=== PATIENT | female | born 1990 | race Caucasian/White ===

== ENCOUNTER 2017-03-25 10:34 | Emergency (ER) | payer SELFPAY ==
[~2017-03-25] VITALS: Ht 170.2 cm; Wt 48.5 kg
[~2017-03-25 10:34] MED LIST: ACET500T33; CEFU250T59 PO; PNV11TAB PO
--- NOTE | 2017-03-25 12:00 | PHYS DOC ---
Past History Past Medical History: No Pertinent History Past Surgical History: Other Smoking: Non-smoker Alcohol Use: None Drug Use: None Adult General Chief Complaint Chief Complaint: VAGINAL PROBLEM HPI HPI Patient is a 27-year-old female who presents with vaginal bleeding that started yesterday. The patient states that she had unprotected intercourse on Thursday, . On Thursday, 03/24, she had some vaginal bleeding described as a "gush". Since then, her bleeding has stopped but she has spotting when she wipes. She's had no pain. No fever or chills. No UTI symptoms. She did not have unprotected intercourse prior to Thursday. They usually use condoms. Her last menstrual period , she believes, was at the end of February. Patient does not have a [facility] doctor, she does not have yearly exams. She does not use any type of hormonal control, she does not have an IUD, pills, injections, patch, etc. Review of Systems Review of Systems Constitutional: Denies fever or chills [] : As in history of present illness Allergies Allergies Allergies Coded Allergies Type Severity Reaction Last Updated Verified No Known Drug Allergies 03/25/17 No Physical Exam Physical Exam Constitutional: Well developed, well nourished, no acute distress, non-toxic appearance. Alert, ambulatory, mentating normally, warm and dry. HENT: Normocephalic, atraumatic, bilateral external ears normal, nose normal. [ ] Eyes: conjunctiva normal, no discharge. [] Neck: Normal range of motion, no stridor. [] Pelvic exam: External genitalia normal. Vaginal vault with small amount of normal-appearing blood. Cervix normal in appearance. GC, chlamydia swab was taken. Bimanual exam: No cervical motion tenderness. Uterus not enlarged or tender. Adnexa without tenderness or masses. Skin: Warm, dry, no erythema, no rash. [] Extremities: No tenderness, no cyanosis, no clubbing, ROM intact, no edema. [] Neurologic: Alert and oriented X 3, normal motor function, no focal deficits noted. [] Current Patient Data Vital Signs Vital Signs Date Time Temp Pulse Resp B/P (MAP) Pulse Ox O2 Delivery O2 Flow Rate FiO2 03/25/17 10:44 97.6 116 16 99 Room Air Lab Results Laboratory Tests Test 03/25/17 11:45 POC Urine HCG, Qualitative hcg negative (Negative) EKG EKG [] Radiology/Procedures Radiology/Procedures [] Course & Med Decision Making Course & Med Decision Making Pertinent Labs and Imaging studies reviewed. (See chart for details) 27-year-old female presents with vaginal bleeding at a time that she does not believe is a menstrual cycle, she is concerned about why she is bleeding. test is negative. Pelvic exam is very unremarkable, no evidence of PID or other abnormal cause of bleeding. I reassured the patient. She did say that she had unprotected intercourse on 03/23 and also said that she does not wish to become . I offered her treatment with "plan B" here in the ED, she was not sure what she wanted to do, so I wrote her prescription so she can make up her mind, but advised her this sooner the better if she wants it to work. [] Dragon Disclaimer Dragon Disclaimer This chart was dictated in whole or in part using Voice Recognition software in a busy, high-work load, and often noisy Emergency Department environment. It may contain unintended and wholly unrecognized errors or omissions. Departure Departure: Impression: Primary Impression: Irregular menstrual bleeding Disposition: HOME, SELF-CARE Condition: STABLE Referrals: PCP,NO (PCP) Additional Instructions: As we discussed, your test was negative here in the emergency department today. However, you had unprotected sex 2 days ago, and that would not show up yet if you did become 2 days ago. I recommend that you check a test in about 2 weeks and about 1 month. The bleeding you're having might be an early. At an abnormal time for you. Or it might be just some bleeding between periods that you don't usually experience. There is no sign today of anything serious causing it. I recommend following up with [facility], the health department, or [facility] doctor for contraception and routine yearly exams including cancer screening. Scripts Levonorgestrel (PLAN B ONE-STEP) 1.5 Mg Tablet 1.5 MG PO 1X for to prevent , #1 TAB Take as soon as possible after unprotected intercourse, to prevent unwanted . This is most effective the quicker that it is taken after unprotected intercourse. Prov: MANUEL MARIE MD 03/25/17 MANUEL MARIE MD Mar 25, 2017 12:00
[2017-03-25] MEDS ORDERED: [UNRECOGNIZED DRUG - CODE] PO (12:06)
[2017-03-25 12:15] VITALS: BP 131/71
[2017-03-26 20:09] LABS: CHLAMYDIA PROBE Negative (Negative)
== END 2017-03-25 12:15 | disposition home or self-care (01) ==
LOC: ER 10:34
DX: N92.5 Other specified irregular menstruation (principal)
CPT/HCPCS: 36415; 81025; 87491; 87591; 99284

== ENCOUNTER 2020-05-30 08:43 | Emergency (ER) | payer SELFPAY ==
[~2020-05-30] VITALS: Ht 170.2 cm; Wt 44.0 kg
[~2020-05-30 08:43] MED LIST changes: +[UNRECOGNIZED DRUG - CODE] PO
[2020-05-30 09:10] VITALS: BP 117/70
[2020-05-30] MEDS ORDERED: TRAM50TA PO (19:44)
[2020-05-30] MEDS ORDERED: AMOX500T PO (19:44)
== END 2020-05-30 11:42 | disposition left against medical advice (07) ==
LOC: ER 08:43
DX: K08.89 Other specified disorders of teeth and supporting structures (principal); Z53.21 Procedure and treatment not carried out due to patient leaving prior to being seen by health care provider

== ENCOUNTER 2020-05-30 19:31 | Emergency (ER) | payer SELFPAY ==
[~2020-05-30] VITALS: Ht 170.2 cm; Wt 45.5 kg
[2020-05-30 19:35] VITALS: BP 117/61
[2020-05-30] MEDS ORDERED: AMOX500T PO (19:44)
[2020-05-30] MEDS ORDERED: TRAM50TA PO (19:44)
--- NOTE | 2020-05-30 19:44 | PHYS DOC ---
Past History Past Medical History: No Pertinent History (JUN THOMASON APRN) Past Surgical History: No Surgical History (JUN THOMASON APRN) Smoking: Non-smoker Alcohol Use: None Drug Use: None (JUN THOMASON APRN) Adult General Chief Complaint Chief Complaint: DENTAL PROBLEM HPI HPI Patient is a 30-year-old female patient current smoker presenting to the ED today complaining of 9 out of 10 right lower gum dental pain with gum swelling, patient states dental pain is chronic but has gotten worse in the last 24 hours. Denies any fever or trismus. She states she does not have a dentist because she does not have any medical insurance. (JUN THOMASON APRN) Review of Systems Review of Systems Constitutional: Denies fever or chills [] HENT: Reports right-sided dental pain denies nasal congestion or sore throat [] Musculoskeletal: Denies back pain or joint pain [] Integument: Denies rash or skin lesions [] Neurologic: Denies headache, focal weakness or sensory changes [] All other systems were reviewed and found to be within normal limits, except as documented in this note. (JUN THOMASON APRN) Allergies Allergies Allergies Coded Allergies Type Severity Reaction Last Updated Verified No Known Drug Allergies 03/25/17 No (JUN THOMASON APRN) Physical Exam Physical Exam Constitutional: Well developed, well nourished, no acute distress, non-toxic appearance. [] HENT: Normocephalic, atraumatic, bilateral external ears normal, oropharynx moist, no oral exudates, nose normal. [] Right facial area has mild swelling especially on the lower cheek. Very poor dentition noted, swelling along the molars and premolars gums. Erythema along this region, no fluctuance noted to the gums. Most of her teeth are severely decayed Skin: Warm, dry, no erythema, no rash. [] Back: No tenderness, no CVA tenderness. [] Extremities: No tenderness, no cyanosis, no clubbing, ROM intact, no edema. [] Neurologic: Alert and oriented X 3, normal motor function, normal sensory function, no focal deficits noted. [] Psychologic: Affect normal, judgement normal, mood normal. [] (JUN THOMASON APRN) EKG EKG [] (JUN THOMASON APRN) Radiology/Procedures Radiology/Procedures [] (JUN THOMASON APRN) Heart Score Risk Factors: Risk Factors: DM, Current or recent (<one month) smoker, HTN, HLP, family history of CAD, obesity. Risk Scores: Risk Factors: DM, Current or recent (<one month) smoker, HTN, HLP, family history of CAD, obesity. (JUN THOMASON APRN) Course & Med Decision Making Course & Med Decision Making Pertinent Labs and Imaging studies reviewed. (See chart for details) This is a 30-year-old female patient presenting to the ED ED today with dental abscess. She is a smoker, she is encouraged to consider smoking cessation. She was discharged on amoxicillin and tramadol. Follow-up with dentist in 2 weeks. (JUN THOMASON APRN) Dragon Disclaimer Dragon Disclaimer This electronic medical record was generated, in whole or in part, using a voice recognition dictation system. (JUN THOMASON APRN) Attending Co-Sign The patient was seen and interviewed as well as examined at the bedside. The chart was reviewed. The case was discussed. Agree with the plan of care. (MOSES ALCAZAR DO) Departure Departure: Impression: Primary Impression: Dental abscess Additional Impression: Smoking addiction Disposition: 01 DC HOME SELF CARE/HOMELESS Condition: STABLE Referrals: PCP,NO (PCP) Follow-up with the dentist in 2 weeks Patient Instructions: Dental Abscess, Smoking Cessation, Tips For Success Additional Instructions: You were evaluated in the emergency room for dental infection. Take the prescribed antibiotics until completed. Please consider smoking cessation. Establish care with a dentist and follow-up in 2 weeks Scripts Tramadol Hcl (TRAMADOL HCL) 50 Mg Tablet 50 MG PO PRN Q6HRS PRN for PAIN, #21 TAB Prov: JUN THOMASON APRN 05/30/20 Amoxicillin (AMOXICILLIN) 500 Mg Tablet 1 TAB PO BID, #20 TAB Prov: JUN THOMASON APRN 05/30/20 Problem Qualifiers JUN THOMASON APRN May 30, 2020 19:44 MOSES ALCAZAR DO May 31, 2020 00:07
== END 2020-05-30 19:49 | disposition home or self-care (01) ==
LOC: ER 19:31
DX: K04.7 Periapical abscess without sinus (principal); F17.200 Nicotine dependence, unspecified, uncomplicated
CPT/HCPCS: 99283

== ENCOUNTER 2020-11-26 22:19 | Emergency (ER) | payer SELFPAY ==
[~2020-11-26] VITALS: Ht 170.2 cm; Wt 45.5 kg
[~2020-11-26 22:19] MED LIST changes: +AMOX500T PO; +TRAM50TA PO
[2020-11-26] MEDS ORDERED: NEOMYCIN/POLYMYXIN/HC OTIC SUSPENSION 10ML BOTTLE. AD ONE (23:00)
--- NOTE | 2020-11-26 23:01 | PHYS DOC ---
Past History Past Medical History: No Pertinent History Past Surgical History: No Surgical History Smoking: Non-smoker Alcohol Use: None Drug Use: None Adult General Chief Complaint Chief Complaint: DENTAL PROBLEM HPI HPI Patient is a 27-year-old female presenting for dental pain. She has history of poor dentition with abscess formation in the past. She reports right superior incisor started becoming painful today and feels like prior episodes of infection that later developed into abscess formation. She has been trying [id number] dentalgia formulations without significant relief. She has no fever. She has not contacted a dentist Review of Systems Review of Systems Fourteen body systems of review of systems have been reviewed. See HPI for pertinent positives and negative responses, other guerra all other systems are negative, non-pertinent or non-contributory Allergies Allergies Allergies Coded Allergies Type Severity Reaction Last Updated Verified No Known Drug Allergies 03/25/17 No Physical Exam Physical Exam Constitutional: Well developed, well nourished, no acute distress, non-toxic appearance. HENT: Normocephalic, atraumatic, bilateral external ears normal, oropharynx dry with overall poor dentition with several missing teeth, tooth #7 absent with adjacent tooth #6 concerning for findings consistent with acute infection and gingival pain and swelling without abscess, no oral exudates, nose normal. Eyes: PERRLA, EOMI, conjunctiva normal, no discharge. Neck: Normal range of motion, no tenderness, supple, no stridor. Cardiovascular: Heart rate regular per monitor Lungs & Thorax: No respiratory distress or accessory muscle use, bilateral chest rise Abdomen: Abdomen soft, non-tender, bowel sounds present in all quadrants, no guarding or rebound, nonacute abdomen. Skin: Warm, dry, no erythema, no rash. Back: No tenderness, no CVA tenderness. Extremities: No tenderness, no cyanosis, no clubbing, ROM intact, no edema. Neurologic: Alert and oriented X 3, grossly normal motor & sensory function, no focal deficits noted. Psychologic: Affect normal, judgement normal, mood normal. Current Patient Data Vital Signs Vital Signs Date Time Temp Pulse Resp B/P (MAP) Pulse Ox O2 Delivery O2 Flow Rate FiO2 11/26/20 22:23 97.9 89 16 129/75 (93) 97 Room Air EKG EKG [] Radiology/Procedures Radiology/Procedures [] Heart Score C/O Chest Pain: No Risk Factors: Risk Factors: DM, Current or recent (<one month) smoker, HTN, HLP, family history of CAD, obesity. Risk Scores: Risk Factors: DM, Current or recent (<one month) smoker, HTN, HLP, family history of CAD, obesity. Course & Med Decision Making Course & Med Decision Making Vital signs stable, HPI and physical exam consistent with acute dental infection Disclosed need for antibiotic given appearance and overall poor dentition. She will also require short-term pain medication that should be used for severe pain purposes only with Tylenol and/or ibuprofen utilized as primary means of pain control I stressed need for her to establish care with a dentist who can provide definitive management of her overall poor dentition. Strict return precautions were discussed with good understanding by patient, all questions and concerns addressed prior to your departure Lilia Disclaimer Lilia Disclaimer This electronic medical record was generated, in whole or in part, using a voice recognition dictation system. Departure Departure: Impression: Primary Impression: Dental infection Disposition: HOME / SELF CARE / HOMELESS Condition: STABLE Referrals: PCP,ONEL (PCP) Patient Instructions: Dental Abscess Additional Instructions: You were seen for dental pain. There does appear to be any infection at this time. Take Ibuprofen (600-800mg) and Tylenol (500-650mg) alternating every 4-6 hours to help with inflammation and pain while you contact a dentist for further care. You have been prescribed short-term opioid pain medication that should be reserved for severe pain only. You should exercise extreme caution when taking these medication and take them as prescribed to avoid risk of respiratory depression and potential overdose. In addition, you were prescribed an antibiotic. You should take this as prescribed to completion. You need to contact a local dentist first thing in the morning to discuss need for immediate definitive intervention. You should return to the ED if you develop worsening pain, fever > 101, swelling, redness, or any other new or concerning symptoms. Unfortunately, your pain is not likely to improve without seeing a dentist for further evaluation and treatment of your poor dentition and dental caries. Scripts Hydrocodone Bit/Acetaminophen (HYDROCODONE-APAP 5-325 ) 1 Each Tablet 1 TAB PO PRN Q6HRS PRN for PAIN, #6 TAB 0 Refills Prov: CARLOS CROSS DO 11/26/20 Amoxicillin/Potassium Clav (AUGMENTIN 875-125 TABLET) 1 Each Tablet 1 TAB PO BID for DENTAL INFECTION for 7 Days, #13 TAB 0 Refills Prov: CARLOS CROSS DO 11/26/20 CARLOS CROSS DO November 26, 2020 23:01
[2020-11-26] MEDS ORDERED: AMOXICILLIN/K CLAV 875/125MG TABLET. PO ONE (23:15)
[2020-11-26] MEDS ORDERED: HYDROcodone/APAP 5/325MG 1 TAB TABLET PO ONE (23:15)
[2020-11-26] MEDS ORDERED: AMOX1TAB61 PO (23:16)
[2020-11-26] MEDS ORDERED: HYDR-2155 PO (23:16)
[2020-11-26 23:24] VITALS: BP 126/80
== END 2020-11-26 23:26 | disposition home or self-care (01) ==
LOC: ER 22:19
DX: K04.7 Periapical abscess without sinus (principal)
CPT/HCPCS: 99283

== ENCOUNTER 2021-03-06 10:56 | Emergency (ER) | payer SELFPAY ==
[~2021-03-06] VITALS: Ht 170.2 cm; Wt 46.3 kg
[~2021-03-06 10:56] MED LIST changes: +AMOX1TAB61 PO; +HYDR-2155 PO; +LEVO1.5T37 PO; -[UNRECOGNIZED DRUG - CODE] PO
[2021-03-06 11:05] VITALS: BP 114/47
[2021-03-06] MEDS ORDERED: AMOXICILLIN/K CLAV 875/125MG TABLET. PO ONE (11:15)
[2021-03-06] MEDS ORDERED: ACETAMINOPHEN 500 MG TABLET PO ONE (11:15)
[2021-03-06] MEDS ORDERED: DEXAMETHASONE 4 MG TABLET PO ONE (11:15)
[2021-03-06] MEDS ORDERED: CHLO15MO2 PO (11:17)
[2021-03-06] MEDS ORDERED: AMOX1TAB61 PO (11:17)
--- NOTE | 2021-03-06 11:17 | PHYS DOC ---
Past History Past Medical History: No Pertinent History Past Surgical History: No Surgical History Smoking: Non-smoker Alcohol Use: None Drug Use: None General Adult EDM: Chief Complaint: TOOTH ACHE OR PAIN HPI: HPI: Patient is a [age] year old [sex] who presents with [] Review of Systems: Review of Systems: Constitutional: Denies fever or chills Eyes: Denies change in visual acuity HENT: Denies nasal congestion or sore throat Respiratory: Denies cough or shortness of breath Cardiovascular: Denies chest pain or edema GI: Denies abdominal pain, nausea, vomiting, bloody stools or diarrhea : Denies dysuria Musculoskeletal: Denies back pain or joint pain Integument: Denies rash Neurologic: Denies headache, focal weakness or sensory changes Endocrine: Denies polyuria or polydipsia Lymphatic: Denies swollen glands Psychiatric: Denies depression or anxiety Current Medications: Current Meds: Current Medications Medications (Trade) Dose Ordered Sig/Kelli Start Time Stop Time Status Last Admin Dose Admin Amoxicillin/ Clavulanate Potassium (Augmentin 875/ 125mg) 1 tab 1X ONCE 03/06/21 11:15 03/06/21 11:16 UNV Dexamethasone (Decadron) 10 mg 1X ONCE 03/06/21 11:15 03/06/21 11:16 UNV Allergies: Allergies: Allergies Coded Allergies Type Severity Reaction Last Updated Verified No Known Drug Allergies 03/25/17 No Physical Exam: PE: Constitutional: Well developed, well nourished, no acute distress, non-toxic ap pearance. [] HENT: Normocephalic, atraumatic, bilateral external ears normal, oropharynx moist, no oral exudates, nose normal. [] Eyes: PERRLA, EOMI, conjunctiva normal, no discharge. [] Neck: Normal range of motion, no tenderness, supple, no stridor. [] Cardiovascular:Heart rate regular rhythm, no murmur [] Lungs & Thorax: Bilateral breath sounds clear to auscultation [] Abdomen: Bowel sounds normal, soft, no tenderness, no masses, no pulsatile masses. [] Skin: Warm, dry, no erythema, no rash. [] Back: No tenderness, no CVA tenderness. [] Extremities: No tenderness, no cyanosis, no clubbing, ROM intact, no edema. [] Neurologic: Alert and oriented X 3, normal motor function, normal sensory function, no focal deficits noted. [] Psychologic: Affect normal, judgement normal, mood normal. [] EKG: EKG: [] Radiology/Procedures: Radiology/Procedures: [] Heart Score: Risk Factors: Risk Factors: DM, Current or recent (<one month) smoker, HTN, HLP, family history of CAD, obesity. Risk Scores: Score 0 - 3: 2.5% MACE over next 6 weeks - Discharge Home Score 4 - 6: 20.3% MACE over next 6 weeks - Admit for Clinical Observation Score 7 - 10: 72.7% MACE over next 6 weeks - Early Invasive Strategies Course & Med Decision Making: Course & Med Decision Making Pertinent Labs and Imaging studies reviewed. (See chart for details) [] Dragon Disclaimer: Dragon Disclaimer: This electronic medical record was generated, in whole or in part, using a voice recognition dictation system. Departure Departure: Impression: Primary Impression: Dentalgia Additional Impression: Dental caries Disposition: HOME / SELF CARE / HOMELESS Condition: STABLE Referrals: PCP,NO (PCP) Patient Instructions: Dental Caries, Toothache-Brief Additional Instructions: Trade-off taking Tylenol and ibuprofen for pain. Scripts Chlorhexidine Gluconate (PERIDEX) 15 Ml Mouthwash 15 ML PO BID for Dental infection, #473 ML 0 Refills Prov: MAHOGANY SIMON DO 03/06/21 Amoxicillin/Potassium Clav (AUGMENTIN 875-125 TABLET) 1 Each Tablet 1 TAB PO BID for Dental infection for 7 Days, #14 TAB 0 Refills Prov: MAHOGANY SIMON DO 03/06/21 MAHOGANY SIMON DO Mar 06, 2021 11:17
== END 2021-03-06 11:35 | disposition home or self-care (01) ==
LOC: ER 10:56
DX: K02.9 Dental caries, unspecified (principal)
CPT/HCPCS: 99284; J8540

== ENCOUNTER 2021-04-02 13:24 | Emergency (ER) | payer SELFPAY ==
[~2021-04-02] VITALS: Ht 170.2 cm; Wt 46.3 kg
[~2021-04-02 13:24] MED LIST changes: +CHLO15MO2 PO
[2021-04-02 13:30] VITALS: BP 140/78
[2021-04-02] MEDS ORDERED: CHLO15MO2 PO (13:38)
[2021-04-02] MEDS ORDERED: AMOX1TAB61 PO (13:38)
[2021-04-02] MEDS ORDERED: HYDR-2155 PO ×2 (13:38→13:39)
--- NOTE | 2021-04-02 13:42 | PHYS DOC ---
Past History Past Medical History: No Pertinent History Past Surgical History: No Surgical History Smoking: Cigarettes Alcohol Use: None Drug Use: None General Adult EDM: Chief Complaint: DENTAL PROBLEM HPI: HPI: 31-year-old female presents with report of left lower molar dental pain that has been ongoing since last night. Patient reports has been taking ibuprofen and Tylenol without relief. Patient does report known poor dentition. Patient reports she felt like part of her tooth "broke off ". Denies . Denies trauma. Patient does report tobacco abuse with smoking. Review of Systems: Review of Systems: Constitutional: Denies fever or chills Eyes: Denies redness or eye pain HENT: Denies nasal congestion; reports tooth ache Integument: Denies rash or skin lesions Neurologic: Denies headache, focal weakness or sensory changes Complete systems were reviewed and found to be within normal limits, except as documented in this note. Allergies: Allergies: Allergies Coded Allergies Type Severity Reaction Last Updated Verified No Known Drug Allergies 03/25/17 No Physical Exam: PE: Constitutional: Well developed, well nourished, no acute distress, non-toxic appearance HENT: Normocephalic, atraumatic, bilaterally diffuse upper and lower dental decay noted, poor dental hygiene throughout, no fluctuant mass appreciated, pain on palpation to left mandibular third molar Eyes: Conjunctiva normal, no discharge Neck: Normal range of motion, supple Lungs & Thorax: No respiratory distress, equal chest rise and fall Skin: Warm, dry, no erythema, no rash Extremities: ROM intact, no edema Neurologic: Alert and oriented X 3, no focal deficits noted Psychologic: Affect normal, judgment normal Current Patient Data: Vital Signs: Vital Signs Date Time Temp Pulse Resp B/P (MAP) Pulse Ox O2 Delivery O2 Flow Rate FiO2 04/02/21 13:30 97.7 75 18 140/78 (98) 98 Room Air EKG: EKG: [] Radiology/Procedures: Radiology/Procedures: [] Heart Score: C/O Chest Pain: N/A Course & Med Decision Making: Course & Med Decision Making Patient presents with dentalgia. Patient with known dental decay. No fluctuant absence appreciated. Symptomatic steroid provided. Empiric antibiotic initiated. Patient stable for discharge with outpatient follow-up with PCP/dentist. Dental resources provided. Discussed findings and plan with patient, who acknowledges understanding and agreement. Lilia Disclaimer: Lilia Disclaimer: This electronic medical record was generated, in whole or in part, using a voice recognition dictation system. Departure Departure: Impression: Primary Impression: Dentalgia Additional Impression: Dental caries Disposition: HOME / SELF CARE / HOMELESS Condition: STABLE Referrals: PCP,NO (PCP) Patient Instructions: Dental Caries, Toothache-Brief Scripts Hydrocodone Bit/Acetaminophen (HYDROCODONE-APAP 5-325 ) 1 Each Tablet 0.5-1 TAB PO PRN Q6HRS PRN for PAIN, #8 TAB 0 Refills Prov: MAHOGANY SIMON DO 04/02/21 Chlorhexidine Gluconate (PERIDEX) 15 Ml Mouthwash 15 ML PO BID for Dental infection, #473 ML 0 Refills Prov: MAHOGANY SIMON DO 04/02/21 Amoxicillin/Potassium Clav (AUGMENTIN 875-125 TABLET) 1 Each Tablet 1 TAB PO BID for Dental infection for 7 Days, #14 TAB 0 Refills Prov: MAHOGANY SIMON DO 04/02/21 MAHOGANY SIMON DO Apr 02, 2021 13:42
[2021-04-02] MEDS ORDERED: AMOXICILLIN/K CLAV 875/125MG TABLET. PO ONE (13:45)
[2021-04-02] MEDS ORDERED: DEXAMETHASONE 4 MG TABLET PO ONE (13:45)
== END 2021-04-02 13:54 | disposition home or self-care (01) ==
LOC: ER 13:24
DX: K02.9 Dental caries, unspecified (principal); F17.210 Nicotine dependence, cigarettes, uncomplicated
CPT/HCPCS: 99283; J8540